=== PATIENT | female | born 1995 | race Two or more races ===

== ENCOUNTER 2025-06-27 12:36 | Emergency (ER) | payer OTHER ==
[~2025-06-27] VITALS: Ht 162.6 cm; Wt 50.3 kg
[2025-06-27] MEDS ORDERED: TETANUS & DIPHTHERIA TOX,ADULT 0.5 ML VIAL IM ONE (13:30)
[2025-06-27] MEDS ORDERED: LIDOCAINE HCL 1% 10ML VIAL PERCUT ONE (13:30)
[2025-06-27] MEDS ORDERED: BUTALB/ACETAMINOPHEN/CAFFEINE 1 TAB TABLET PO ONE ×2 (13:30→13:53)
[2025-06-27] MEDS ORDERED: DIPHTH,PERTUSS(ACELL),TET VAC 0.5 ML SYRINGE IM ONE (13:53)
[2025-06-27] MEDS ORDERED: LIDOCAINE HCL 1% 10ML VIAL ONE (13:53)
[2025-06-27] MEDS ORDERED: POVIDONE-IODINE 118 ML BOTT TOP ONE (13:55)
[2025-06-27] MEDS ORDERED: BACITRACIN-NEOMYCIN-POLYMYXIN 0.9 GM PACKET TOP ONE ×2 (14:24)
== END 2025-06-27 15:07 | disposition home or self-care (01) ==
LOC: ER 12:36
DX: S62.665A Nondisplaced fracture of distal phalanx of left ring finger, initial encounter for closed fracture (principal); S61.215A Laceration without foreign body of left ring finger without damage to nail, initial encounter; X58.XXXA Exposure to other specified factors, initial encounter; Y93.89 Activity, other specified; Y92.89 Other specified places as the place of occurrence of the external cause; Y99.9 Unspecified external cause status; Z87.09 Personal history of other diseases of the respiratory system

== ENCOUNTER 2025-07-05 20:21 | Emergency (ER) | payer OTHER ==
[~2025-07-05] VITALS: Ht 162.6 cm; Wt 49.9 kg
== END 2025-07-05 20:37 | disposition home or self-care (01) ==
LOC: ER 20:23
DX: Z48.02 Encounter for removal of sutures (principal)